=== PATIENT | female | born 1955 | race Caucasian/White ===

== ENCOUNTER → 2024-02-06 06:20 | Day surgery (SDC) | payer MEDICARE, SELFPAY | LOC: GI 06:20 | PROVIDERS: ATTENDING PHYSICIAN Specialist | DX: Z12.11 Encounter for screening for malignant neoplasm of colon (principal); Z80.0 Family history of malignant neoplasm of digestive organs; Z86.010 Personal history of colon polyps; D12.2 Benign neoplasm of ascending colon; D12.3 Benign neoplasm of transverse colon; D12.5 Benign neoplasm of sigmoid colon; K31.7 Polyp of stomach and duodenum; K22.70 Barrett's esophagus without dysplasia | CPT/HCPCS: 45385; 45380; 43239; 88305 ==